=== PATIENT | female | born 1995 | race Caucasian/White ===

== ENCOUNTER 2016-08-17 07:18 | Emergency (ER) | payer OTHER ==
[~2016-08-17] VITALS: Ht 165.1 cm; Wt 55.5 kg
--- NOTE | 2016-08-17 08:13 | PHYS DOC ---
Past Medical History Past Medical History: Anxiety, Asthma, Bipolar Additional Past Medical Histor: ADHD Past Surgical History: Alcohol Use: None Drug Use: None Adult General Chief Complaint Chief Complaint: NAUSEA/VOMITING/DIARRHA HPI HPI Patient is a 20 year old female presents the emergency department complaint of cough, congestion, vomiting and diarrhea that essentially began 4 days ago. Patient states that she was exposed to influenza by her grandmother. She reports that she initially had intermittent fevers and chills. Now complaining primarily of chills with diarrhea. Patient herself denies any history of gastrointestinal diseases. She denies hospitalization or foreign travel within the past 90 days. She denies any bloody or bilious emesis. She denies any black or bloody stools. Patient states that her cough is primarily nonproductive. She states she had one episode of coughing up blood streaked sputum. Review of Systems Review of Systems Constitutional: Denies fever or chills [] Eyes: Denies change in visual acuity, redness, or eye pain [] HENT: Denies nasal congestion or sore throat [] Respiratory: Denies cough or shortness of breath [] Cardiovascular: No additional information not addressed in HPI [] GI: Denies abdominal pain, nausea, vomiting, bloody stools or diarrhea [] : Denies dysuria or hematuria [] Musculoskeletal: Denies back pain or joint pain [] Integument: Denies rash or skin lesions [] Neurologic: Denies headache, focal weakness or sensory changes [] Endocrine: Denies polyuria or polydipsia [] Current Medications Current Medications Current Medications Medications (Trade) Dose Ordered Sig/[facility] Start Time Stop Time Status Last Admin Dose Admin Acetaminophen (Tylenol) 650 mg 1X ONCE 08/17/16 09:00 08/17/16 09:01 DC 08/17/16 08:55 650 MG Ondansetron HCl (Zofran Odt) 4 mg 1X ONCE 08/17/16 08:15 08/17/16 08:19 DC 08/17/16 08:55 4 MG Allergies Allergies Allergies Coded Allergies Type Severity Reaction Last Updated Verified No Known Drug Allergies 08/17/16 No Physical Exam Physical Exam Constitutional: Well developed, well nourished, no acute distress, non-toxic appearance. [] HENT: Normocephalic, atraumatic, bilateral external ears normal, oropharynx moist, no oral exudates, clear rhinorrhea bilaterally.. Eyes: PERRLA, EOMI, conjunctiva normal, no discharge. [] Neck: Normal range of motion, no tenderness, supple, no stridor. There is no meningismus. There is bilateral anterior and posterior cervical lymphadenopathy. Cardiovascular:Heart rate regular rhythm, no murmur Lungs & Thorax: Bilateral breath sounds clear to auscultation Abdomen: Bowel sounds normal, soft, no tenderness, no masses, no pulsatile masses. Skin: Warm, dry, no erythema, no rash. Back: No tenderness, no CVA tenderness. [] Extremities: No tenderness, no cyanosis, no clubbing, ROM intact, no edema. [] Neurologic: Alert and oriented X 3, normal motor function, normal sensory function, no focal deficits noted. Psychologic: Affect normal, judgement normal, mood normal. [] Current Patient Data Vital Signs Vital Signs Date Time Temp Pulse Resp B/P Pulse Ox O2 Delivery O2 Flow Rate FiO2 08/17/16 10:10 96 18 128/70 97 Room Air 08/17/16 07:40 98.3 98.3 EKG EKG [] Radiology/Procedures Radiology/Procedures [] Course & Med Decision Making Course & Med Decision Making Pertinent Labs and Imaging studies reviewed. (See chart for details) [] Dragon Disclaimer Dragon Disclaimer This electronic medical record was generated, in whole or in part, using a voice recognition dictation system. Departure Departure Impression: Primary Impression: Viral syndrome Disposition: 01 HOME, SELF-CARE Condition: GOOD Referrals: MORRIS PALAFOX MD (PCP) Patient Instructions: Viral Syndrome Additional Instructions: 1. Take the medication as prescribed. 2. Acetaminophen every 4-6 hours or ibuprofen every 8 hours for headache and body aches. 3. Review discharge instructions for self-care and reasons to return to the emergency department. 4. Contact primary care doctor's office this afternoon or tomorrow morning to schedule follow-up appointment. Scripts Ondansetron (Zofran Odt)4 Mg Tab.rapdis4 Mg PO Q8HRS PRN NAUSEA/VOMITING #10 TAB Prov:MONICA MTZ 08/17/16 MONICA MTZ Aug 17, 2016 08:13
[2016-08-17] MEDS ORDERED: ONDANSETRON ODT 4 MG TAB.RAPDIS PO ONE (08:15)
[2016-08-17] MEDS ORDERED: ACETAMINOPHEN 325 MG TABLET. PO ONE (09:00)
[2016-08-17] MEDS ORDERED: ONDA4TAB10 PO (09:27)
[2016-08-17 10:10] VITALS: BP 128/70
== END 2016-08-17 10:21 | disposition home or self-care (01) ==
LOC: ER 07:18
DX: B34.9 Viral infection, unspecified (principal); J45.909 Unspecified asthma, uncomplicated
CPT/HCPCS: 99283; Q0162

== ENCOUNTER 2016-12-04 10:19 | Observation (INO) | payer OTHER ==
[~2016-12-04 10:19] MED LIST: ONDA4TAB10 PO
[2016-12-04 11:36] LABS: BILIRUBIN,URINE NEGATIVE (NEG); GLUCOSE,URINE NEGATIVE (NEG); NITRITE,URINE NEGATIVE (NEG); PROTEIN,URINE NEGATIVE (NEG-TRACE); UROBILINOGEN,URINE 0.2 mg/dL (0.2 mg/dL)
[2016-12-04 11:41] LABS: BARBITURATES NEG (NEG); BENZODIAZEPINES NEG (NEG); CANNABINOIDS POS (NEG); COCAINE NEG (NEG); METHADONE NEG (NEG); OPIATES NEG (NEG); PHENCYCLIDINE NEG (NEG)
[2016-12-04 11:42] LABS: BACTERIA,URINE FEW /HPF (0-FEW); RBC,URINE 0 /HPF (0-2); SQUAMOUS EPITHELIAL CELL,UR MOD /LPF
== END 2016-12-04 12:30 | disposition home or self-care (01) ==
LOC: 3 SO LND 10:19
PROVIDERS: ADMIT Obstetrics & Gynecology; ATTEND Obstetrics & Gynecology
DX: O26.892 Other specified pregnancy related conditions, second trimester (principal); R10.9 Unspecified abdominal pain; Z3A.20 20 weeks gestation of pregnancy
CPT/HCPCS: 81001; G0378; G0379; G0481

== ENCOUNTER 2017-02-06 14:49 | Observation (INO) | payer OTHER ==
[~2017-02-06] VITALS: Ht 160 cm; Wt 62.7 kg
[2017-02-06 15:39] LABS: BILIRUBIN,URINE NEGATIVE (NEG); GLUCOSE,URINE NEGATIVE (NEG); NITRITE,URINE NEGATIVE (NEG); PROTEIN,URINE NEGATIVE (NEG-TRACE); UROBILINOGEN,URINE 0.2 mg/dL (0.2 mg/dL)
[2017-02-06 15:46] LABS: BACTERIA,URINE FEW /HPF (0-FEW); BARBITURATES NEG (NEG); BENZODIAZEPINES NEG (NEG); CANNABINOIDS POS (NEG); COCAINE NEG (NEG); METHADONE NEG (NEG); OPIATES NEG (NEG); PHENCYCLIDINE NEG (NEG); RBC,URINE 0 /HPF (0-2); SQUAMOUS EPITHELIAL CELL,UR MANY /LPF; WBC,URINE OCC /HPF (0-4)
[2017-02-06] MEDS ORDERED: ACYCLOVIR 200 MG CAPSULE. PO ONE (16:00)
== END 2017-02-06 16:30 | disposition home or self-care (01) ==
LOC: 3 SO LND 14:49
PROVIDERS: ADMIT Obstetrics & Gynecology; ATTEND Obstetrics & Gynecology
DX: O26.892 Other specified pregnancy related conditions, second trimester (principal); R10.2 Pelvic and perineal pain; N89.8 Other specified noninflammatory disorders of vagina; L29.8 Other pruritus; Z3A.25 25 weeks gestation of pregnancy
CPT/HCPCS: 80307; 81001; G0378; G0379; G0479

== ENCOUNTER 2017-03-04 07:23 | Emergency (ER) | payer OTHER ==
[2017-03-04 07:41] VITALS: BP 99/51
[2017-03-04] MEDS ORDERED: AMOX500C PO (08:13)
--- NOTE | 2017-03-04 08:13 | PHYS DOC ---
Past Medical History Past Medical History: Anxiety, Asthma, Bipolar Additional Past Medical Histor: ADHD Past Surgical History: Alcohol Use: None Drug Use: None Adult General Chief Complaint Chief Complaint: SORE THROAT HPI HPI Patient is a 21 year old female presents to the emergency department with a history of sore throat and cough for the last 2 days. Patient states she has had a productive green cough. Patient is 8 months . Patient denies fever , chills, nausea and vomiting. She has not take anything for the complaints. Review of Systems Review of Systems Constitutional: Denies fever or chills [] Eyes: Denies change in visual acuity, redness, or eye pain [] HENT: Denies nasal congestion C/o sore throat [] Respiratory: cough denies shortness of breath [] Cardiovascular: No additional information not addressed in HPI [] GI: Denies abdominal pain, nausea, vomiting, bloody stools or diarrhea [] : Denies dysuria or hematuria [] Musculoskeletal: Denies back pain or joint pain [] Integument: Denies rash or skin lesions [] Neurologic: Denies headache, focal weakness or sensory changes [] Endocrine: Denies polyuria or polydipsia [] Allergies Allergies Allergies Coded Allergies Type Severity Reaction Last Updated Verified No Known Drug Allergies 08/17/16 No Physical Exam Physical Exam Constitutional: Well developed, well nourished, no acute distress, non-toxic appearance. [] HENT: Normocephalic, atraumatic, bilateral external ears normal, oropharynx moist, no oral exudates, nose normal. Bilateral TM normal, throat without redness, erythema or exudate. Eyes: PERRLA, EOMI, conjunctiva normal, no discharge. [] Neck: Normal range of motion, no tenderness, supple, no stridor. [] Cardiovascular:Heart rate regular rhythm, no murmur [] Lungs & Thorax: Bilateral breath sounds clear to auscultation [] Skin: Warm, dry, no erythema, no rash. [] Back: No tenderness Extremities: No tenderness, no cyanosis, no clubbing, ROM intact, no edema. [] Neurologic: Alert and oriented X 3, normal motor function, normal sensory function, no focal deficits noted. [] Psychologic: Affect normal, judgement normal, mood normal. [] Current Patient Data Vital Signs Vital Signs Date Time Temp Pulse Resp B/P (MAP) Pulse Ox O2 Delivery O2 Flow Rate FiO2 03/04/17 07:41 98.0 100 17 99/51 (67) 95 Room Air 98.0 EKG EKG [] Radiology/Procedures Radiology/Procedures [] Course & Med Decision Making Course & Med Decision Making Pertinent Labs and Imaging studies reviewed. (See chart for details) Patient was here with her son who did test positive for strep. She will be placed on amoxicillin for URI at this time. Recommended that she followup with her PCP in 5-7 days. Signs and symptoms to return to the emergency department has been provided. Patient was recommended for Tylenol for fever, chills or generalized body aches. Patient will be discharged home in stable condition. All questions and concern have been answered for the patient at this time. [] Dragon Disclaimer Dragon Disclaimer This electronic medical record was generated, in whole or in part, using a voice recognition dictation system. Departure Departure Impression: Primary Impression: URI (upper respiratory infection) Additional Impression: Streptococcus exposure Disposition: 01 HOME, SELF-CARE Condition: STABLE Referrals: MORRIS PALAFOX MD (PCP) Patient Instructions: Upper Respiratory Infection, Adult, Grmo-[id number] Additional Instructions: Activity as tolerated Medication as prescribed Tylenol for fevers, chill or generalized body aches and discomfort Drink plenty of fluids Followup with your primary care provider in 5-7 days Return to emergency department as needed for signs and symptoms that become worse Scripts Amoxicillin (AMOXICILLIN) 500 Mg Capsule 1 CAP PO BID, #20 CAP Prov: MELISSA TRAMMELL APRN 03/04/17 Problem Qualifiers Primary Impression: URI (upper respiratory infection) URI type: unspecified URI Qualified Codes: J06.9 - Acute upper respiratory infection, unspecified MELISSA TRAMMELL GALVANIZER ZINC Mar 04, 2017 08:13
[2017-03-04 09:20] LABS: NEGATIVE OBC STREP NEG; POSITIVE OBC STREP POS
== END 2017-03-04 08:35 | disposition home or self-care (01) ==
LOC: ER 07:23
DX: O99.511 Diseases of the respiratory system complicating pregnancy, first trimester (principal); Z3A.08 8 weeks gestation of pregnancy; J06.9 Acute upper respiratory infection, unspecified; J45.909 Unspecified asthma, uncomplicated; F31.9 Bipolar disorder, unspecified; F90.9 Attention-deficit hyperactivity disorder, unspecified type
CPT/HCPCS: 87070; 87880; 99283

== ENCOUNTER 2017-03-05 15:12 | Observation (INO) | payer OTHER ==
[2017-03-04 07:41] VITALS: BP 99/51
[~2017-03-05 15:12] MED LIST changes: +AMOX500C PO
[2017-03-05] MEDS ORDERED: IV RINGERS,LACTATED 1000ML 1,000 ML IV PRN (15:45)
[2017-03-05 15:49] LABS: BILIRUBIN,URINE NEGATIVE (NEG); GLUCOSE,URINE NEGATIVE (NEG); NITRITE,URINE NEGATIVE (NEG); PH,URINE 7.5; PROTEIN,URINE NEGATIVE (NEG-TRACE); UROBILINOGEN,URINE 0.2 mg/dL (0.2 mg/dL)
[2017-03-05 15:55] LABS: BARBITURATES NEG (NEG); BENZODIAZEPINES NEG (NEG); CANNABINOIDS NEG (NEG); COCAINE NEG (NEG); METHADONE NEG (NEG); OPIATES NEG (NEG); PHENCYCLIDINE NEG (NEG)
[2017-03-05 16:04] LABS: BACTERIA,URINE FEW /HPF (0-FEW); RBC,URINE OCC /HPF (0-2); SQUAMOUS EPITHELIAL CELL,UR MANY /LPF
[2017-03-05] MEDS ORDERED: ONDANSETRON PF 4 MG/2 ML VIAL. IV PRN (16:45)
[2017-03-05] MEDS ORDERED: ONDANSETRON PF 4 MG/2 ML VIAL. ONE (16:46)
== END 2017-03-05 17:45 | disposition home or self-care (01) ==
LOC: 3 SO LND 15:12
PROVIDERS: ADMIT Obstetrics & Gynecology; ATTEND Obstetrics & Gynecology
DX: O62.9 Abnormality of forces of labor, unspecified (principal); O99.283 Endocrine, nutritional and metabolic diseases complicating pregnancy, third trimester; E86.0 Dehydration; O26.893 Other specified pregnancy related conditions, third trimester; J02.9 Acute pharyngitis, unspecified; R11.0 Nausea; Z3A.29 29 weeks gestation of pregnancy
CPT/HCPCS: 80307; 81001; 87086; 96361; 96374; G0378; G0379; J2405; J7120; G0479

== ENCOUNTER 2018-06-08 13:05 | Emergency (ER) | payer OTHER ==
[~2018-06-08] VITALS: Ht 162.6 cm; Wt 63.5 kg
[2018-06-08] MEDS ORDERED: IV NORMAL SALINE 1000ML BAG 1,000 ML IV SCH (13:19)
[2018-06-08 13:27] LABS: BILIRUBIN,URINE NEGATIVE (NEG); CLARITY,URINE CLEAR; COLOR,URINE YELLOW; NITRITE,URINE NEGATIVE (NEG); PROTEIN,URINE NEGATIVE (NEG-TRACE); UROBILINOGEN,URINE 0.2 mg/dL (0.2 mg/dL)
--- NOTE | 2018-06-08 13:27 | PHYS DOC ---
Past Medical History Past Medical History: Anxiety, Asthma, Bipolar Additional Past Medical Histor: ADHD Past Surgical History: Alcohol Use: None Drug Use: None Adult General Chief Complaint Chief Complaint: NEAR SYNCOPE HPI HPI Patient is a 22-year-old female who presents to the emergency department for evaluation. 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 She reportedly was unconscious for a few seconds and hit her chin, which is mildly sore, when she fell down. She denies any other painful areas. She denies any headache or neck pain, back pain , or lower abdominal pain. She is approximately 15 weeks she states, but her LMP was January 02. She has not yet had a sonogram, but has had care at [facility] and has a sonogram scheduled for June 16, which would make her 22 weeks today. She has not had any vaginal bleeding or discharge, and denies any pelvic pain. She denies any urinary symptoms. There are no alleviating or exacerbating factors to the patient's symptoms, except that she states that she has not had anything to eat or drink today. Review of Systems Review of Systems Constitutional: Denies fever or chills [] Eyes: Denies change in visual acuity, redness, or eye pain [] HENT: Denies nasal congestion or sore throat [] Respiratory: Denies cough or shortness of breath [] Cardiovascular: The patient denies any shortness of breath, chest pain, palpitations, or orthopnea [] GI: Denies abdominal pain, nausea, vomiting, bloody stools or diarrhea [] : Denies dysuria or hematuria [] Musculoskeletal: Denies back pain or joint pain [] Integument: Denies rash or skin lesions [] Neurologic: Denies headache, focal weakness or sensory changes [] Endocrine: Denies polyuria or polydipsia [] All other systems were reviewed and found to be within normal limits, except as documented in this note. Current Medications Current Medications Current Medications Medications (Trade) Dose Ordered Sig/[facility] Start Time Stop Time Status Last Admin Dose Admin Sodium Chloride 1,000 ml @ 1,000 mls/hr Q1H 06/08/18 13:19 06/08/18 14:18 DC 06/08/18 13:19 1,000 MLS/HR Allergies Allergies Allergies Coded Allergies Type Severity Reaction Last Updated Verified No Known Drug Allergies 08/17/16 No Physical Exam Physical Exam PHYSICAL EXAM: CONSTITUTIONAL: Well developed, well nourished HEAD: normocephalic, atraumatic EENT: PERRL, EOMI. Conjunctivae normal color, sclerae non-icteric; moist mucous membranes. There is no facial bony tenderness to palpation. NECK: Supple, non-tender; no meningismus.There is full, painless range of motion of the cervical spine, without any focal bony midline tenderness to palpation. LUNGS: Lungs CTA, breathing even and unlabored. Normal air movement. HEART: Regular rate and rhythm, no murmur CHEST: No deformity; non-tender ABDOMEN: The abdomen is soft, and non-tender, no masses or bruits. EXTREM: Normal ROM; no deformity, no calf tenderness. Normal pulses palpable in all extremities. There is no pedal edema. SKIN: No rash; no diaphoresis NEURO: Alert; normal speech and cognition; CN's grossly intact; strength grossly intact without focal deficit. BACK: No CVA TTP. Current Patient Data Vital Signs Vital Signs Date Time Temp Pulse Resp B/P (MAP) Pulse Ox O2 Delivery O2 Flow Rate FiO2 06/08/18 13:12 98.6 106 18 111/59 (76) 97 Room Air 98.6 Lab Values Laboratory Tests Test 06/08/18 13:20 06/08/18 13:35 Urine Collection Type Unknown Urine Color Yellow Urine Clarity Clear Urine pH 7.0 Urine Specific [place] 1.015 Urine Protein Negative mg/dL (NEG-TRACE) Urine Glucose (UA) Negative mg/dL (NEG) Urine Ketones (Stick) Trace mg/dL (NEG) Urine Blood Negative (NEG) Urine Nitrite Negative (NEG) Urine Bilirubin Negative (NEG) Urine Urobilinogen Dipstick 0.2 mg/dL (0.2 mg/dL) Urine Leukocyte Esterase Negative (NEG) Urine RBC 0 /HPF (0-2) Urine WBC 0 /HPF (0-4) Urine Squamous Epithelial Cells Many /LPF Urine Bacteria Few /HPF (0-FEW) Urine Mucus Mod /LPF White Blood Count 10.9 x10^3/uL (4.0-11.0) Red Blood Count 4.05 x10^6/uL (3.50-5.40) Hemoglobin 12.5 g/dL (12.0-15.5) Hematocrit 35.2 % (36.0-47.0) L Mean Corpuscular Volume 87 fL (79-100) Mean Corpuscular Hemoglobin 31 pg (25-35) Mean Corpuscular Hemoglobin Concent 35 g/dL (31-37) Red Cell Distribution Width 12.9 % (11.5-14.5) Platelet Count 273 x10^3/uL (140-400) Neutrophils (%) (Auto) 76 % (31-73) H Lymphocytes (%) (Auto) 18 % (24-48) L Monocytes (%) (Auto) 5 % (0-9) Eosinophils (%) (Auto) 0 % (0-3) Basophils (%) (Auto) 0 % (0-3) Neutrophils # (Auto) 8.3 x10^3uL (1.8-7.7) H Lymphocytes # (Auto) 2.0 x10^3/uL (1.0-4.8) Monocytes # (Auto) 0.5 x10^3/uL (0.0-1.1) Eosinophils # (Auto) 0.0 x10^3/uL (0.0-0.7) Basophils # (Auto) 0.0 x10^3/uL (0.0-0.2) Sodium Level 138 mmol/L (136-145) Potassium Level 3.8 mmol/L (3.5-5.1) Chloride Level 103 mmol/L (98-107) Carbon Dioxide Level 26 mmol/L (21-32) Anion Gap 9 (6-14) Blood Urea Nitrogen 7 mg/dL (7-20) Creatinine 0.6 mg/dL (0.6-1.0) Estimated GFR (Cockcroft-Gault) 123.9 BUN/Creatinine Ratio 12 (6-20) Glucose Level 100 mg/dL (70-99) H Calcium Level 9.1 mg/dL (8.5-10.1) Total Bilirubin 0.2 mg/dL (0.2-1.0) Aspartate Amino Transferase (AST) 12 U/L (15-37) L Alanine Aminotransferase (ALT) 13 U/L (14-59) L Alkaline Phosphatase 61 U/L (46-116) Total Protein 6.7 g/dL (6.4-8.2) Albumin 3.2 g/dL (3.4-5.0) L Albumin/Globulin Ratio 0.9 (1.0-1.7) L Laboratory Tests 06/08/18 13:35 Laboratory Tests 06/08/18 13:35 EKG EKG [Normal sinus rhythm with a normal rate, normal axis, normal intervals, there are no acute ischemic ST/T changes.] Radiology/Procedures Radiology/Procedures [] Course & Med Decision Making Course & Med Decision Making Pertinent Labs and Imaging studies reviewed. (See chart for details) [2:30 PM:] The patient is feeling significantly better. She has eaten and received a liter of IV fluids. Her vital signs did show a trend towards orthostasis, but she feels well enough to go home and does not want any further treatment at this time. She states her ride is here needs to leave immediately. She is not having any abdominal pain. The presence of heart tones make ectopic extremely unlikely. I do not believe that there is an indication for an emergency ultrasound at this time. 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 Dragon Disclaimer Dragon Disclaimer This electronic medical record was generated, in whole or in part, using a voice recognition dictation system. Departure Departure Impression: Primary Impression: Syncope Additional Impression: Disposition: 01 HOME, SELF-CARE Condition: STABLE Patient Instructions: ABCs of , Syncope Problem Qualifiers CHRISTIANO SHARP MD Jun 08, 2018 13:27
[2018-06-08 13:37] LABS: BACTERIA,URINE FEW /HPF (0-FEW); RBC,URINE 0 /HPF (0-2); SQUAMOUS EPITHELIAL CELL,UR MANY /LPF; WBC,URINE 0 /HPF (0-4)
[2018-06-08 13:46] LABS: BASO % 0 % (0-3); EOS % 0 % (0-3); HEMATOCRIT 35.2 % (36.0-47.0); HEMOGLOBIN 12.5 g/dL (12.0-15.5); LYMPH % 18 % (24-48); MEAN CORPUSCULAR HEMOGLOBIN 31 pg (25-35); MEAN CORPUSCULAR HGB CONC 35 g/dL (31-37); MEAN CORPUSCULAR VOLUME 87 fL (79-100); MONO # 0.5 x10^3/uL (0.0-1.1); MONO % 5 % (0-9); NEUT # 8.3 x10^3uL (1.8-7.7); NEUT % 76 % (31-73); PLATELET COUNT 273 x10^3/uL (140-400); RED BLOOD COUNT 4.05 x10^6/uL (3.50-5.40); RED CELL DISTRIBUTION WIDTH 12.9 % (11.5-14.5); WHITE BLOOD COUNT 10.9 x10^3/uL (4.0-11.0)
[2018-06-08 13:59] LABS: CALCIUM 9.1 mg/dL (8.5-10.1); CREATININE 0.6 mg/dL (0.6-1.0); GFR 123.9; POTASSIUM 3.8 mmol/L (3.5-5.1)
[2018-06-08 14:04] LABS: ALBUMIN 3.2 g/dL (3.4-5.0); ALBUMIN/GLOBULIN RATIO 0.9 (1.0-1.7); TOTAL BILIRUBIN 0.2 mg/dL (0.2-1.0); TOTAL PROTEIN 6.7 g/dL (6.4-8.2)
--- NOTE | 2018-06-08 14:05 | EKG ---
[facility] [address] [place] [address] Test Date: 2018-06-08 Test Time: 13:26:23 Pat Name: DREAD TONEY Department: Room: Gender: F Chief Concierge: : 1995 Requested By: CHRISTIANO SHARP Order Number: [id number] Reading MD: Juan Manuel Rodriguez MD Measurements Intervals [place] Rate: 90 P: 45 GA: 148 QRS: 67 QRSD: 76 T: 34 QT: 344 QTc: 424 Interpretive Statements SINUS RHYTHM Electronically Signed On 06-12-2018 8:35:35 HAT SPRAYER by Juan Manuel Rodriguez MD
[2018-06-08 14:30] VITALS: BP 98/56
== END 2018-06-08 14:37 | disposition home or self-care (01) ==
LOC: ER 13:05
DX: O26.892 Other specified pregnancy related conditions, second trimester (principal); R55 Syncope and collapse; O99.342 Other mental disorders complicating pregnancy, second trimester; F31.9 Bipolar disorder, unspecified; F41.9 Anxiety disorder, unspecified; O99.512 Diseases of the respiratory system complicating pregnancy, second trimester; J45.909 Unspecified asthma, uncomplicated; F90.9 Attention-deficit hyperactivity disorder, unspecified type; Z3A.22 22 weeks gestation of pregnancy
CPT/HCPCS: 36415; 80053; 81001; 85025; 93005; 96360; 99284; J7030

== ENCOUNTER 2018-10-30 19:02 | Observation (INO) | payer OTHER ==
[2018-10-30] MEDS ORDERED: IV RINGERS,LACTATED 1000ML 1,000 ML IV PRN (19:15)
[2018-10-30 19:39] LABS: BILIRUBIN,URINE NEGATIVE (NEG); CLARITY,URINE CLOUDY; COLOR,URINE YELLOW; NITRITE,URINE NEGATIVE (NEG); PROTEIN,URINE NEGATIVE (NEG-TRACE); UROBILINOGEN,URINE 0.2 mg/dL (0.2 mg/dL)
[2018-10-30 19:44] LABS: AMPHETAMINE/METHAMPHETAMINE NEG (NEG); BARBITURATES NEG (NEG); BENZODIAZEPINES NEG (NEG); CANNABINOIDS POS (NEG); COCAINE NEG (NEG); METHADONE NEG (NEG); OPIATES NEG (NEG); PHENCYCLIDINE NEG (NEG)
[2018-10-30 19:51] LABS: BACTERIA,URINE MODERATE /HPF (0-FEW); RBC,URINE 0 /HPF (0-2); SQUAMOUS EPITHELIAL CELL,UR MANY /LPF; WBC,URINE 0 /HPF (0-4)
[2018-11-27] MEDS ORDERED: DOCU-109 PO (09:37)
[2018-11-27] MEDS ORDERED: OXYC1TAB15 PO (09:37)
[2018-11-27] MEDS ORDERED: IBUP-1027 PO (09:37)
== END 2018-10-30 21:09 | disposition home or self-care (01) ==
LOC: 3 SO LND 19:02
PROVIDERS: ADMIT Obstetrics & Gynecology; ATTEND Obstetrics & Gynecology
DX: O62.9 Abnormality of forces of labor, unspecified (principal); Z3A.35 35 weeks gestation of pregnancy
CPT/HCPCS: 80307; 81001; 82962; 87086; G0378; G0379

== ENCOUNTER 2018-11-07 18:24 | Observation (INO) | payer OTHER ==
[2018-11-07] MEDS ORDERED: ALBUTEROL SULFATE 2.5 MG/3 ML NEBU. NEB ONE (19:30)
[2018-11-07] MEDS ORDERED: ALBUTEROL SULFATE 2.5 MG/3 ML NEBU. ONE (19:30)
[2018-11-07] MEDS ORDERED: ALBUTEROL SULFATE 2.5 MG/3 ML NEBU. NEB PRN (19:30)
[2018-11-07] MEDS ORDERED: IV RINGERS,LACTATED 1000ML 1,000 ML IV SCH ×2 (19:45→21:30)
[2018-11-07 20:14] LABS: BARBITURATES NEG (NEG); BENZODIAZEPINES NEG (NEG); BILIRUBIN,URINE NEGATIVE (NEG); CANNABINOIDS POS (NEG); CLARITY,URINE CLEAR; COCAINE NEG (NEG); COLOR,URINE YELLOW; METHADONE NEG (NEG); NITRITE,URINE NEGATIVE (NEG); OPIATES NEG (NEG); PHENCYCLIDINE NEG (NEG); PROTEIN,URINE NEGATIVE (NEG-TRACE); UROBILINOGEN,URINE 0.2 mg/dL (0.2 mg/dL)
[2018-11-07 20:17] LABS: AMPHETAMINE/METHAMPHETAMINE NEG (NEG)
[2018-11-07 20:39] LABS: BACTERIA,URINE MODERATE /HPF (0-FEW); RBC,URINE 0 /HPF (0-2); SQUAMOUS EPITHELIAL CELL,UR MANY /LPF
[2018-11-07] MEDS ORDERED: diphenhydrAMINE HCL 25 MG CAPSULE PO ONE (21:30)
[2018-11-07] MEDS ORDERED: ACETAMINOPHEN 500 MG TABLET PO ONE (21:30)
[2018-11-27] MEDS ORDERED: OXYC1TAB15 PO (09:37)
[2018-11-27] MEDS ORDERED: DOCU-109 PO (09:37)
[2018-11-27] MEDS ORDERED: IBUP-1027 PO (09:37)
== END 2018-11-07 22:08 | disposition home or self-care (01) ==
LOC: 3 SO LND 18:24
PROVIDERS: ADMIT Obstetrics & Gynecology; ATTEND Obstetrics & Gynecology
DX: O62.9 Abnormality of forces of labor, unspecified (principal); Z3A.36 36 weeks gestation of pregnancy
CPT/HCPCS: 80307; 81001; 87086; 94640; G0378; G0379; J7613; Q0163; J7120

== ENCOUNTER 2018-11-12 23:08 | Observation (INO) | payer OTHER ==
[2018-11-12] MEDS ORDERED: ONDANSETRON PF 4 MG/2 ML VIAL. IV PRN (23:30)
[2018-11-12] MEDS ORDERED: IV RINGERS,LACTATED 1000ML 1,000 ML IV SCH (23:30)
[2018-11-12] MEDS ORDERED: ACETAMINOPHEN 325 MG TABLET. PO PRN (23:30)
[2018-11-12 23:41] LABS: BILIRUBIN,URINE NEGATIVE (NEG); CLARITY,URINE CLOUDY; COLOR,URINE YELLOW; NITRITE,URINE NEGATIVE (NEG); PROTEIN,URINE NEGATIVE (NEG-TRACE); UROBILINOGEN,URINE 0.2 mg/dL (0.2 mg/dL)
[2018-11-12 23:47] LABS: BARBITURATES NEG (NEG); BENZODIAZEPINES NEG (NEG); CANNABINOIDS POS (NEG); COCAINE NEG (NEG); METHADONE NEG (NEG); OPIATES NEG (NEG); PHENCYCLIDINE NEG (NEG)
[2018-11-12 23:48] LABS: BACTERIA,URINE MODERATE /HPF (0-FEW); RBC,URINE RARE /HPF (0-2); SQUAMOUS EPITHELIAL CELL,UR MANY /LPF; WBC,URINE 0 /HPF (0-4)
[2018-11-12 23:49] LABS: AMPHETAMINE/METHAMPHETAMINE NEG (NEG)
[2018-11-13 00:06] LABS: AMNIO PT NEGATIVE
[2018-11-13] MEDS ORDERED: TERBUTALINE 1 MG/ML VIAL. ONE (00:23)
[2018-11-13] MEDS ORDERED: TERBUTALINE 1 MG/ML VIAL. SQ ONE (00:30)
[2018-11-13 00:32] VITALS: BP 106/66
[2018-11-27] MEDS ORDERED: OXYC1TAB15 PO (09:37)
[2018-11-27] MEDS ORDERED: DOCU-109 PO (09:37)
[2018-11-27] MEDS ORDERED: IBUP-1027 PO (09:37)
== END 2018-11-13 00:58 | disposition home or self-care (01) ==
LOC: 3 SO LND 23:08
PROVIDERS: ADMIT Obstetrics & Gynecology; ATTEND Obstetrics & Gynecology
DX: O62.9 Abnormality of forces of labor, unspecified (principal); O42.92 Full-term premature rupture of membranes, unspecified as to length of time between rupture and onset of labor; O26.893 Other specified pregnancy related conditions, third trimester; R11.0 Nausea; Z3A.37 37 weeks gestation of pregnancy
CPT/HCPCS: 36415; 80307; 81001; 84112; 87086; 96372; G0378; G0379; J3105; 87186

== ENCOUNTER 2018-11-16 19:58 | Observation (INO) | payer OTHER ==
[2018-11-16] MEDS ORDERED: IV RINGERS,LACTATED 1000ML 1,000 ML IV SCH (20:00)
[2018-11-16 20:48] LABS: BILIRUBIN,URINE NEGATIVE (NEG); CLARITY,URINE CLOUDY; COLOR,URINE YELLOW; NITRITE,URINE POSITIVE (NEG); PROTEIN,URINE 100 mg/dL (NEG-TRACE); UROBILINOGEN,URINE 0.2 mg/dL (0.2 mg/dL)
[2018-11-16 20:53] LABS: AMPHETAMINE/METHAMPHETAMINE NEG (NEG); BARBITURATES NEG (NEG); BENZODIAZEPINES NEG (NEG); CANNABINOIDS POS (NEG); COCAINE NEG (NEG); METHADONE NEG (NEG); OPIATES NEG (NEG); PHENCYCLIDINE NEG (NEG)
[2018-11-16 21:01] LABS: BACTERIA,URINE MANY /HPF (0-FEW); RBC,URINE >40 /HPF (0-2); SQUAMOUS EPITHELIAL CELL,UR FEW /LPF; WBC,URINE TNTC /HPF (0-4)
[2018-11-16] MEDS ORDERED: ACETAMINOPHEN 500 MG TABLET PO ONE (21:30)
[2018-11-16 21:55] LABS: AMNIO PT NEGATIVE
[2018-11-16] MEDS ORDERED: cefTRIAXone IM 1 GM VIAL IM ONE (22:00)
[2018-11-27] MEDS ORDERED: OXYC1TAB15 PO (09:37)
[2018-11-27] MEDS ORDERED: IBUP-1027 PO (09:37)
[2018-11-27] MEDS ORDERED: DOCU-109 PO (09:37)
== END 2018-11-16 22:07 | disposition home or self-care (01) ==
LOC: 3 SO LND 19:58
PROVIDERS: ADMIT Obstetrics & Gynecology; ATTEND Obstetrics & Gynecology
DX: O42.92 Full-term premature rupture of membranes, unspecified as to length of time between rupture and onset of labor (principal); O62.9 Abnormality of forces of labor, unspecified; Z3A.37 37 weeks gestation of pregnancy
CPT/HCPCS: 36415; 80307; 81001; 82962; 84112; 87086; 96372; G0378; G0379; J0696; 87186

== ENCOUNTER 2018-11-22 14:47 | Observation (INO) | payer OTHER ==
[2018-11-22 15:31] LABS: BILIRUBIN,URINE NEGATIVE (NEG); CLARITY,URINE CLEAR; COLOR,URINE YELLOW; NITRITE,URINE NEGATIVE (NEG); PH,URINE 6.5; PROTEIN,URINE NEGATIVE (NEG-TRACE); UROBILINOGEN,URINE 0.2 mg/dL (0.2 mg/dL)
[2018-11-22 15:39] LABS: BACTERIA,URINE MANY /HPF (0-FEW); RBC,URINE 0 /HPF (0-2); WBC,URINE OCC /HPF (0-4)
[2018-11-22 15:40] LABS: SQUAMOUS EPITHELIAL CELL,UR MANY /LPF
[2018-11-27] MEDS ORDERED: DOCU-109 PO (09:37)
[2018-11-27] MEDS ORDERED: OXYC1TAB15 PO (09:37)
[2018-11-27] MEDS ORDERED: IBUP-1027 PO (09:37)
== END 2018-11-22 16:34 | disposition home or self-care (01) ==
LOC: 3 SO LND 14:47
PROVIDERS: ADMIT Obstetrics & Gynecology; ATTEND Obstetrics & Gynecology
DX: O62.9 Abnormality of forces of labor, unspecified (principal); Z3A.38 38 weeks gestation of pregnancy
CPT/HCPCS: 81001; 87086; G0378; G0379